=== PATIENT | male | born 1980 | race Asian ===

== ENCOUNTER 2020-04-19 04:43 | Day surgery (SDC) | payer OTHER ==
[2020-04-16 14:50] VITALS: BMI 22.4
[2020-04-19] MEDS ORDERED: LIDOCAINE HCL/PF 2% SDV 5ML VIAL ONE (07:24)
[2020-04-19] MEDS ORDERED: PROPOFOL 20 ML ONE (07:24)
[2020-04-19] MEDS ORDERED: SUCCINYLCHOLINE CHLORIDE 200 MG/10 ML SYRINGE ONE (07:25)
[2020-04-19] MEDS ORDERED: ROCURONIUM BROMIDE 50 MG/5 ML SYRINGE ONE (07:25)
[2020-04-19] MEDS ORDERED: fentaNYL CITRATE 250 MCG/5 ML VIAL ONE (07:25)
[2020-04-19] MEDS ORDERED: MIDAZOLAM HCL 2 MG/2 ML SINGLE DOSE VIAL ONE ×2 (07:29)
[2020-04-19] MEDS ORDERED: BUPIVACAINE LIPOSOME/PF (EXPAREL) 266 MG/20 ML VIAL ONE (07:39)
[2020-04-19] MEDS ORDERED: ceFAZolin SODIUM 1 GM VIAL IVPB ONE (08:55)
[2020-04-19] MEDS ORDERED: ceFAZolin SODIUM 1 GM VIAL ONE (08:56)
[2020-04-19] MEDS ORDERED: NEOSTIGMINE METHYLSULFATE 0.5 MG/ML - 10 ML MDV ONE (10:58)
[2020-04-19] MEDS ORDERED: KETOROLAC TROMETHAMINE 30 MG/1 ML VIAL ONE (10:59)
[2020-04-19] MEDS ORDERED: GLYCOPYRROLATE 0.2 MG/1 ML VIAL ONE (10:59)
[2020-04-19] MEDS ORDERED: BACITRACIN 15 GM TUBE TOPICAL OINTMENT ONE (11:10)
[2020-04-19] MEDS ORDERED: ONDANSETRON 4 MG/2 ML VIAL IVPUSH PRN (11:48)
[2020-04-19] MEDS ORDERED: PROMETHAZINE HCL 25 MG/1 ML VIAL IVPB PRN (11:48)
[2020-04-19] MEDS ORDERED: oxyCODONE HCL 5 MG TABLET PO PRN (11:48)
[2020-04-19 17:17] VITALS: BP 104/62; PULSE 74; TEMP 98.4
== END 2020-04-19 16:45 | disposition home or self-care (01) ==
LOC: JASU-SURG 04:43
PROVIDERS: ATTEND Surgery
PROC: 0YUA4JZ Supplement Bilateral Inguinal Region with Synthetic Substitute, Percutaneous Endoscopic Approach (ICD-10-PCS; principal; 2020-04-19 08:00)
PROC: 0WQF0ZZ Repair Abdominal Wall, Open Approach (ICD-10-PCS; 2020-04-19 08:00)
DX: K40.20 Bilateral inguinal hernia, without obstruction or gangrene, not specified as recurrent (principal); K42.0 Umbilical hernia with obstruction, without gangrene
CPT/HCPCS: 49587; 49650; S2900; 88302-TC; 94760